=== PATIENT | male | born 1965 | race Caucasian/White ===

== ENCOUNTER 2018-05-18 11:55 | Inpatient (IN) ==
--- NOTE | 2018-05-18 14:08 | ED ---
HPI General Chief complaint: Chest Pain Stated complaint: Chest Pain Time Seen by Provider: 05/18/18 13:47 History of Present Illness HPI narrative: 53-year-old male with a history of hypertension, hyperlipidemia, CAD with stents x6 presents to the emergency department for evaluation of chest pain and shortness of breath. Patient states that approximately 3 weeks ago he was hospitalized at [facility] in [place] for chest pain and had a stent placed at that time. States that after he had a stent placed he continued to have chest pain so they did a second cath and he was told that he had a blockage of another artery however they did not place a second stent. States that since he was discharged from the hospital he has had chest pain with shortness of breath with minimal exertion every day. States he has followed up with his railroad car cleaner Dr. Baraajs twice since he was discharged and he was instructed that if his pain returns then he should come to the emergency department as he will require intervention. Patient states that this morning he was cutting limbs off his crpe [place] and started having midsternal chest pain and shortness of breath. States that this is lasted for the past hour however has been improving with rest. States that his pain is now only a 2 on a scale of 1-10. He denies any fever, chills, nausea, vomiting, lightheadedness, dizziness, syncope, swelling of the extremities, calf pain. No other complaints. PCP Dr. Sosa. Related Data Home Medications Medication Instructions Recorded Confirmed atorvastatin 80 mg PO QPM 05/18/18 05/18/18 isosorbide mononitrate 120 mg PO QAM 05/18/18 05/18/18 lisinopril 40 mg PO DAILY 05/18/18 05/18/18 metoprolol succinate 50 mg PO DAILY 05/18/18 05/18/18 ranolazine [Ranexa] 1,000 mg PO Q12H 05/18/18 05/18/18 ticagrelor [Brilinta] 90 mg PO BID 05/18/18 05/18/18 Allergies Allergy/AdvReac Type Severity Reaction Status Date / Time Penicillins Allergy Hives Verified 05/18/18 14:46 Review of Systems ROS: all other systems reviewed are negative [facility] Medical History Medical History Hernia (Acute) High cholesterol (Acute) Hypertension (Acute) Surgical History Surgical History H/O: vasectomy (Acute) Stented coronary artery (Acute) Social History Social History Substance History: No History of Abuse Second Hand Smoke Exposure: No Smoking Status: Never smoker How Often Do You Have a Drink Containing Alcohol: Never Recent Travel in [facility] within the Last 8 Weeks: No Recent Out of Country Travel within the Last 8 Weeks: No Exam Narrative Exam Narrative: GENERAL: Well-nourished and well-developed pleasant patient in no acute distress who is nontoxic appearing. SKIN: Warm and dry. HEAD: Normocephalic and atraumatic. EYES: No injection, drainage, or hyphema noted. PERRLA. EOMI. ENT: No nasal drainage noted. Oropharynx is clear. NECK: Supple and the trachea is midline. CARDIOVASCULAR: Regular rate and rhythm. RESPIRATORY: Breath sounds are equal bilaterally with no accessory muscle use, wheezing, rhonchi, or crackles. GASTROINTESTINAL: Abdomen is soft, non-tender, and nondistended. MUSCULOSKELETAL: No obvious deformities, swelling, cyanosis, or ecchymosis is present throughout the upper and lower extremities. Patient has full range of motion without any signs of neurovascular compromise. Distal pulses are 2+ throughout. NEUROLOGICAL: Awake, alert, and oriented. Normal speech and gait. Cranial nerves are grossly intact. Course Initial Documented Vital Signs Temperature 98.1 F 05/18/18 11:59 Pulse Rate 71 05/18/18 11:59 Respiratory Rate 18 05/18/18 11:59 Blood Pressure 156/87 H 05/18/18 11:59 Pulse Oximetry 97 05/18/18 11:59 Last Documented Vital Signs Temperature 98.1 F 05/18/18 11:59 Pulse Rate 61 05/18/18 14:43 Respiratory Rate 18 05/18/18 14:43 Blood Pressure 120/59 L 05/18/18 14:43 Pulse Oximetry 95 05/18/18 14:43 Medical Decision Making MDM Narrative Medical decision making narrative: 53-year-old male presents to the emergency department for evaluation of chest pain and shortness of breath with exertion 3 weeks after receiving PCI. Patient is afebrile, vital signs are stable. Physical examination is unremarkable. IV access is obtained, labs of been drawn and sent. Patient is placed on cardiac telemetry and pulse oximetry monitoring. Patient is administered aspirin 324 mg orally. I did review the patient's records from his recent hospitalization at [facility] which shows 04/19/18 his troponin was 0.83. He had 2 cardiac catheterizations done during this hospitalization. During his first cardiac catheterization he had a PCI of mid circumflex. The second cardiac catheterization showed that the PCI was successful however he does have a chronic total occlusion of the RCA, medical management was recommended. He also had an echocardiogram showing EF 55-60%. He had a CTA showing incidental finding of TAA 4 cm with no dissection. EKG shows sinus rhythm with occasional PVCs, no acute ST elevations or depressions. Reviewed by my attending physician Dr. Townsend. CBC is unremarkable. Coags are unremarkable. CMP is unremarkable. Troponin is 0.06. BNP is 166. Patient has remained stable and without complaint while here in the emergency department. Patient is currently chest pain-free. I called and spoke with Dr. Barajas who recommends admission to medicine service and he will consult on the patient. I spoke with Dr. Hernandez [facility] hospitalist who accepts patient to his service. Medical Screen Exam Complete: Yes Emergency Medical Condition: Yes Differential Diagnosis Differential Diagnosis: ACS versus angina versus CHF exacerbation Lab Data Result diagrams: 05/18/18 14:40 05/18/18 14:40 Lab Results 05/18/18 05/18/18 05/18/18 Range/Units 14:40 14:40 14:40 WBC 6.1 (4.0-11.0) th/mm3 RBC 4.81 (4.50-5.90) mil/mm3 Hgb 14.8 (13.0-17.0) gm/dL Hct 43.5 (39.0-51.0) % MCV 90.3 (80.0-100.0) fL MCH 30.8 (27.0-34.0) pg MCHC 34.1 (32.0-36.0) % RDW 14.5 (11.6-17.2) % Plt Count 161 (150-450) th/mm3 MPV 8.2 (7.0-11.0) fL Neut % (Auto) 48.4 (16.0-70.0) % Lymph % (Auto) 37.7 (9.0-44.0) % [place] % (Auto) 10.9 H (0.0-8.0) % Eos % (Auto) 2.7 (0.0-4.0) % Baso % (Auto) 0.3 (0.0-2.0) % Neut # (Auto) 2.9 (1.8-7.7) th/mm3 Lymph # (Auto) 2.3 (1.0-4.8) th/mm3 [place] # (Auto) 0.7 (0.0-0.9) th/mm3 Eos # (Auto) 0.2 (0.0-0.4) th/mm3 Baso # (Auto) 0.0 (0.0-0.2) th/mm3 WBC Differential . Differential Comment Auto diff final PT 10.6 (9.8-11.6) sec INR 1.0 Ratio APTT 28.0 (23.4-31.7) sec Sodium 143 (136-145) meq/L Potassium 3.8 (3.5-5.1) meq/L Chloride 110 H (98-107) meq/L Carbon Dioxide 24.9 (21.0-32.0) meq/L Anion Gap 8 (5-15) meq/L BUN 20 H (7-18) mg/dL Creatinine 0.88 (0.60-1.30) mg/dL Estimated GFR Greater than 89 (>89) mL/min Random Glucose 85 (74-106) mg/dL Calcium 7.9 L (8.5-10.1) mg/dL Magnesium 2.0 (1.5-2.5) mg/dL Total Bilirubin 0.7 (0.2-1.0) mg/dL AST 17 (15-37) U/L ALT 29 (12-78) U/L Alkaline Phosphatase 62 (45-117) U/L Troponin I 0.06 H (0.02-0.05) ng/mL B-Natriuretic Peptide (0-100) pg/mL Total Protein 6.7 (6.4-8.2) g/dL Albumin 3.6 (3.4-5.0) g/dL 05/18/18 05/18/18 Range/Units 14:40 14:40 WBC (4.0-11.0) th/mm3 RBC (4.50-5.90) mil/mm3 Hgb (13.0-17.0) gm/dL Hct (39.0-51.0) % MCV (80.0-100.0) fL MCH (27.0-34.0) pg MCHC (32.0-36.0) % RDW (11.6-17.2) % Plt Count (150-450) th/mm3 MPV (7.0-11.0) fL Neut % (Auto) (16.0-70.0) % Lymph % (Auto) (9.0-44.0) % [place] % (Auto) (0.0-8.0) % Eos % (Auto) (0.0-4.0) % Baso % (Auto) (0.0-2.0) % Neut # (Auto) (1.8-7.7) th/mm3 Lymph # (Auto) (1.0-4.8) th/mm3 [place] # (Auto) (0.0-0.9) th/mm3 Eos # (Auto) (0.0-0.4) th/mm3 Baso # (Auto) (0.0-0.2) th/mm3 WBC Differential Differential Comment PT (9.8-11.6) sec INR Ratio APTT (23.4-31.7) sec Sodium (136-145) meq/L Potassium (3.5-5.1) meq/L Chloride (98-107) meq/L Carbon Dioxide (21.0-32.0) meq/L Anion Gap (5-15) meq/L BUN (7-18) mg/dL Creatinine (0.60-1.30) mg/dL Estimated GFR (>89) mL/min Random Glucose (74-106) mg/dL Calcium (8.5-10.1) mg/dL Magnesium Cancelled (1.5-2.5) mg/dL Total Bilirubin (0.2-1.0) mg/dL AST (15-37) U/L ALT (12-78) U/L Alkaline Phosphatase (45-117) U/L Troponin I (0.02-0.05) ng/mL B-Natriuretic Peptide 166 H (0-100) pg/mL Total Protein (6.4-8.2) g/dL Albumin (3.4-5.0) g/dL Imaging Data Radiologist's impression: Chest X-Ray 05/18/18 14:04 CONCLUSION: Moderate elevation of the left hemidiaphragm otherwise negative Discharge Plan Discharge Disposition Patient Disposition: ED Admit(ED Internal Use Only) Discharge Condition Condition: Stable Discharge Order Discharge Orders: ED Use Only Admit Order (Routine); Ordered 05/18/18 Ordered By: Radha Colon Discharge Details Diagnosis: Exertional chest pain Physicians Team ED Provider: Ariella Townsend ED Midlevel Provider: Radha Colon Primary Care Provider: UNKNOWN, Rxs /Orders / Referrals /Forms Prescriptions: No Action atorvastatin 80 mg Tablet 80 mg PO QPM RF: 0 metoprolol succinate 50 mg Tablet Extended Release 24 Hr 50 mg PO DAILY RF: 0 isosorbide mononitrate 120 mg Tablet Extended Release 24 Hr 120 mg PO QAM RF: 0 lisinopril 40 mg Tablet 40 mg PO DAILY RF: 0 ranolazine [Ranexa] 1,000 mg Tablet Extended Release 12 Hr 1,000 mg PO Q12H RF: 0 ticagrelor [Brilinta] 90 mg Tablet 90 mg PO BID RF: 0 Discharge Instructions Patient Printed Instructions: Chest Pain (ED) Status ED Status: With Doctor
[2018-05-18 15:10] LABS: Baso % (Auto) 0.3 % (0.0-2.0); Eos # (Auto) 0.2 th/mm3 (0.0-0.4); Eos % (Auto) 2.7 % (0.0-4.0); Hematocrit 43.5 % (39.0-51.0); Hemoglobin 14.8 gm/dL (13.0-17.0); Lymph # (Auto) 2.3 th/mm3 (1.0-4.8); Lymph % (Auto) 37.7 % (9.0-44.0); Mean Corpuscular HGB Conc 34.1 % (32.0-36.0); Mean Corpuscular Hemoglobin 30.8 pg (27.0-34.0); Mean Corpuscular Volume 90.3 fL (80.0-100.0); Mean Platelet Volume 8.2 fL (7.0-11.0); Mono # (Auto) 0.7 th/mm3 (0.0-0.9); Mono % (Auto) 10.9 % (0.0-8.0); Neut # (Auto) 2.9 th/mm3 (1.8-7.7); Neut % (Auto) 48.4 % (16.0-70.0); Platelet Count 161 th/mm3 (150-450); Prothrombin Time 10.6 sec (9.8-11.6); Red Blood Count 4.81 mil/mm3 (4.50-5.90); Red Cell Distribution Width 14.5 % (11.6-17.2); White Blood Count 6.1 th/mm3 (4.0-11.0)
[2018-05-18 15:26] LABS: Alanine Aminotransferase 29 U/L (12-78); Albumin 3.6 g/dL (3.4-5.0); Anion Gap 8 meq/L (5-15); Aspartate Aminotransferase 17 U/L (15-37); Blood Urea Nitrogen 20 mg/dL (7-18); Calcium 7.9 mg/dL (8.5-10.1); Carbon Dioxide 24.9 meq/L (21.0-32.0); Chloride 110 meq/L (98-107); Glomerular Filtration Rate Greater Than 89 mL/min (>89); Glucose,Random 85 mg/dL (74-106); Potassium 3.8 meq/L (3.5-5.1); Sodium 143 meq/L (136-145)
[2018-05-18 15:31] LABS: Alkaline Phosphatase 62 U/L (45-117); Total Protein 6.7 g/dL (6.4-8.2); Troponin I 0.06 ng/mL (0.02-0.05)
--- NOTE | 2018-05-18 15:31 | XR ---
EXAM DATE: 05/18/2018 3:24 PM EST AGE/SEX: 53 years / Male INDICATIONS: Chest pain. CLINICAL DATA: This is the patient's initial encounter. Patient reports that signs and symptoms have been present for 1 day and indicates a pain score of 10/10. MEDICAL/SURGICAL HISTORY: None. None. COMPARISON: No prior exams available for comparison. FINDINGS: Moderate elevation of the left hemidiaphragm. Right lung is clear The heart is minimally enlarged. Poor vascularity is normal. There is no pneumothorax. CONCLUSION: Moderate elevation of the left hemidiaphragm otherwise negative Electronically signed by: Edenilson Mccall MD Board Certified Radiologist 05/18/2018 3:30 PM EST
[2018-05-18] MEDS ORDERED: Bisacodyl 10 MG Supp RECTAL PRN (17:29)
[2018-05-18] MEDS ORDERED: Acetaminophen 325 MG Tablet PO PRN (17:29)
--- NOTE | 2018-05-18 17:35 | P.HPIM ---
History of Present Illness Primary Care Physician: UNKNOWN History of Present Illness: Pt is 53 yo with hx cad and repordedly 6 stents. Pt moved from [facility] to [place] and established cardiac care in [facility] with Dr Barajas. Pt was in [place] and developed chest pain and admitted to [facility]. He underwent LHC and pt says had stent placed mid cx. He continued to have chest pain and taken for a second LHC with no interventions. After dc pt has continued to have his "typical angina sx's more with exertion including today while trimming a tree in his yard. Pt says his vending machine host/hostess reviewed the cath films and might be able to proceed with PCI. At moment pt is chest pain free. ED notified his vending machine host/hostess who will see him here. PMH cad. 6 stents hyperlipidemia htn hernia repair vasectomy FH mother had cad in her 50s SH tob 1ppd x 30 yrs quit 3m ago Diagnosis (1) CAD (coronary artery disease): (2) Chest pain: Inpatient Certification Inpatient Certification: I certify that the inpatient services were ordered in accordance with Medicare regulations governing the order. This includes certification that hospital inpatient services are reasonable and necessary and in the case of services not specified as inpatient-only under 42 CFR 419.22(n), that they are appropriately provided as inpatient services in accordance to with the 2-midnight benchmark under 43 CFR 412.3(e) Estimated Total Length of Stay (Days): 3 Plans for Post Hospital Care: Home Medications and Allergies Allergies Allergy/AdvReac Type Severity Reaction Status Date / Time Penicillins Allergy Hives Verified 05/18/18 14:46 Home Medications Medication Instructions Recorded Confirmed Type atorvastatin 80 mg PO QPM 05/18/18 05/18/18 History isosorbide mononitrate 120 mg PO QAM 05/18/18 05/18/18 History lisinopril 40 mg PO DAILY 05/18/18 05/18/18 History metoprolol succinate 50 mg PO DAILY 05/18/18 05/18/18 History ranolazine [Ranexa] 1,000 mg PO Q12H 05/18/18 05/18/18 History ticagrelor [Brilinta] 90 mg PO BID 05/18/18 05/18/18 History Active Medications: Active Medications Acetaminophen (Tylenol) 650 mg PO Q4H PRN PRN Reason: Temp > 100.4 Al Hydroxide/Mg Hydroxide (Milk Of Magnesia Liq) 30 ml PO Q12H PRN PRN Reason: Mild Constipation Aspirin (Aspirin Chew) 81 mg PO DAILY [facility] Atorvastatin Calcium (Lipitor) 80 mg PO QPM [facility] Bisacodyl (Dulcolax Supp) 10 mg RECTAL DAILY PRN PRN Reason: SEVERE CONSITIPATION Lactulose (Lactulose Liq) 30 ml PO DAILY PRN PRN Reason: SEVERE CONSITIPATION Metoprolol Succinate (Toprol Xl) 50 mg PO DAILY [facility] Non-Formulary Medication (Isosorbide Mononitrate [Isosorbide Mononitrate]) 120 mg PO QAM [facility] Non-Formulary Medication (Lisinopril [Lisinopril]) 40 mg PO DAILY [facility] Non-Formulary Medication (Ranolazine [Ranexa]) 1,000 mg PO Q12H [facility] Ondansetron HCl (Zofran Inj) 4 mg IV.PUSH Q6H PRN PRN Reason: NAUSEA OR VOMITING Sennosides (Senokot) 17.2 mg PO Q12H PRN PRN Reason: Moderate Constipation Sodium Chloride (Ns Flush) 2 ml IV.FLUSH UNSCH PRN PRN Reason: FLUSH AFTER USING IV ACCESS Sodium Chloride (Ns Flush) 2 ml IV.FLUSH BID LAUREN Sodium Chloride (Ns Flush) 2 ml IV.FLUSH PRN PRN PRN Reason: FLUSH AFTER USING IV ACCESS Ticagrelor (Brilinta) 90 mg PO BID [facility] Physical Exam Vital signs: Last Vital Signs Temp 98.1 F 05/18/18 11:59 Pulse 62 05/18/18 17:26 Resp 20 05/18/18 17:26 BP 118/71 05/18/18 17:26 Pulse Ox 95 05/18/18 17:26 Narrative: heart reg lung cta abd s/nt ext no edema Results Labs CBC & Chem 7: 05/18/18 14:40 05/19/18 03:33 Caprini VTE Risk Assessment Caprini VTE Risk Assessment: Moderate/High Risk (score >= 2) Caprini Risk Assessment Model: Point Value = 1 Point Value = 2 Point Value = 3 Point Value = 5 Age 41-60 Minor surgery BMI > 25 kg/m2 Swollen legs Varicose veins or History of unexplained or recurrent spontaneous Oral contraceptives or hormone replacement Sepsis (< 1 month) Serious lung disease, including pneumonia (< 1 month) Abnormal pulmonary function Acute myocardial infarction Congestive heart failure (< 1 month) History of inflammatory bowel disease Medical patient at bed rest Age 61-74 Arthroscopic surgery Major open surgery (> 45 min) Laparoscopic surgery (> 45 min) Malignancy Confined to bed (> 72 hours) Immobilizing plaster cast Central venous access Age >= 75 History of VTE Family history of VTE Factor V Leiden Prothrombin [id number] Lupus anticoagulant Anticardiolipin antibodies Elevated serum homocysteine Heparin-induced thrombocytopenia Other congenital or acquired thrombophilia Stroke (< 1 month) Elective arthroplasty Hip, pelvis, or leg fracture Acute spinal cord injury (< 1 month) Prophylaxis Regimen: Total Risk Factor Score Risk Level Prophylaxis Regimen 0-1 Low Early ambulation 2 Moderate Order ONE of the following: *Sequential Compression Device (SCD) *Heparin 5000 units SQ BID 3-4 Higher Order ONE of the following medications: *Heparin 5000 units SQ TID *Enoxaparin/Lovenox 40 mg SQ daily (WT < 150 kg, CrCl > 30 mL/min) *Enoxaparin/Lovenox 30 mg SQ daily (WT < 150 kg, CrCl > 10-29 mL/min) *Enoxaparin/Lovenox 30 mg SQ BID (WT < 150 kg, CrCl > 30 mL/min) AND/OR *Sequential Compression Device (SCD) 5 or more Highest Order ONE of the following medications: *Heparin 5000 units SQ TID (Preferred with Epidurals) *Enoxaparin/Lovenox 40 mg SQ daily (WT < 150 kg, CrCl > 30 mL/min) *Enoxaparin/Lovenox 30 mg SQ daily (WT < 150 kg, CrCl > 10-29 mL/min) *Enoxaparin/Lovenox 30 mg SQ BID (WT < 150 kg, CrCl > 30 mL/min) AND *Sequential Compression Device (SCD) Assessment and Plan Assessment (1) CAD (coronary artery disease): Code(s): I25.10 - Atherosclerotic heart disease of [place] coronary artery without angina pectoris Status: Acute (2) Chest pain: Code(s): R07.9 - Chest pain, unspecified Status: Acute Plan 1. 53 yo with long hx cad and recently admitted to [facility] requiring 2 LHC and 1 stent. Presents with persistent chest pain primarily with exertion. ED notified his vending machine host/hostess who will consult. cont his bb/juanpabol/asa/plavix/nitro/ranexa/statin prn ntg...ntg gtt if needed. monitor tele and ce's..pt noted to have pvc's add ppi as pt also has gerd problems await plan per cardiology..keep npo and add ivf while npo.
[2018-05-18 21:16] LABS: Troponin I 0.05 ng/mL (0.02-0.05)
[2018-05-18] MEDS: Ranolazine 500 MG 12HR ER Tablet PO SCH (21:33)
[2018-05-19 04:17] LABS: Calcium 7.7 mg/dL (8.5-10.1); Potassium 3.8 meq/L (3.5-5.1)
[2018-05-19 04:22] LABS: Troponin I 0.07 ng/mL (0.02-0.05)
[2018-05-19] MEDS ORDERED: Isosorbide Mononitrate 60 MG ER 24HR Tablet (Imdur) PO SCH (07:00)
[2018-05-19] MEDS: Ranolazine 500 MG 12HR ER Tablet PO SCH (08:31)
[2018-05-19] MEDS ORDERED: Sod Chloride 0.9% Inj 1,000 ML IV.CONT SCH (08:57)
[2018-05-19] MEDS ORDERED: Lisinopril 20 MG Tablet PO SCH (09:00)
--- NOTE | 2018-05-19 09:06 | P.PNIM ---
Subjective Interval history: mild pain overnight when ambulating to bathroom. resolved Physical Exam Vital signs: Last Vital Signs Temp 98.5 F 05/19/18 08:35 Pulse 73 05/19/18 08:35 Resp 17 05/19/18 08:35 BP 138/80 05/19/18 08:35 Pulse Ox 93 L 05/19/18 08:35 Narrative: heart reg lung cta abd s/nt ext no edema Results Labs CBC & Chem 7: 05/18/18 14:40 05/19/18 03:33 Assessment and Plan Assessment (1) CAD (coronary artery disease): Code(s): I25.10 - Atherosclerotic heart disease of [place] coronary artery without angina pectoris Status: Acute (2) Chest pain: Code(s): R07.9 - Chest pain, unspecified Status: Acute Plan 1. 53 yo with long hx cad and recently admitted to [facility] requiring 2 LHC and 1 stent. Presents with persistent chest pain primarily with exertion. ED notified his printing film stripper who will consult. cont his bb/juanpablo/asa/plavix/nitro/ranexa/statin prn ntg...ntg gtt if needed. monitor tele and ce's..pt noted to have pvc's add ppi as pt also has gerd problems await plan per cardiology..keep npo and add ivf while npo. addendum: spoke with Dr Barajas. He is at bedside to see pt. he wants pt discharged and f/u next week for outpt PCI. pt agreed with him. Progress Note: Quality VTE Deep Vein Thrombosis/Pulmonary Embolism Present on Admission: No
[2018-05-19 12:57] VITALS: PULSE 59; RESP 18; TEMP 98.2; O2SAT 98
[2018-05-19 12:58] VITALS: BP 124/75
--- NOTE | 2018-05-19 16:34 | P.CONCA ---
History of Present Illness Service: Cardiology Consult date: 05/19/18 Reason for Consult: Chest pain Primary Care Provider: UNKNOWN History of Present Illness: 53-year-old gentleman with a history of coronary disease status post multiple stent placements in 2013 in [place] presented to [facility] in [place] on with chest pain. Patient underwent cardiac catheterization found to have an occluded obtuse marginal under went complex intervention with stenting. Patient also found to have occluded right coronary stents with collaterals which was not intervened upon. Patient had recurrent chest pain was brought back to the catheterization lab and found to have a patent stent in the circumflex looks artery and occluded right coronary stents which was not intervened upon. Patient presented to my office last week with exertional chest pain and was placed on Ranexa. Patient returns with exertional chest pain with nonspecific troponin levels 0.06, 0.05, 0.07 and sinus rhythm with nonspecific inferior ST abnormalities. Review of Systems All other systems reviewed negative except as stated in HPI [facility] - History History Provided By: Patient - Medical History Medical History: Medical History (Last Updated 05/18/18 @ 14:50 by Rach Gomes) Hernia High cholesterol Hypertension - Surgical History Surgical History: Surgical History (Last Updated 05/18/18 @ 14:45 by Rach Gomes) H/O: vasectomy Stented coronary artery - Tobacco History Second Hand Smoke Exposure: No Smoking Status: Never smoker - Alcohol History How Often Do You Have a Drink Containing Alcohol: Never - Substance Use History Substance History: No History of Abuse - Travel History Recent Travel in the [place] Within the Last 8 Weeks: No Recent Travel Out of the Country Within the Last 8 Weeks: No - Immunization History Tetanus Immunization: >5 Years Hx Influenza Vaccine This Season: Yes Medications and Allergies Active Medications: Active Medications Acetaminophen (Tylenol) 650 mg PO Q4H PRN PRN Reason: Temp > 100.4 Al Hydroxide/Mg Hydroxide (Milk Of Magnesia Liq) 30 ml PO Q12H PRN PRN Reason: Mild Constipation Aspirin (Aspirin Chew) 81 mg PO DAILY [facility] Last Admin: 05/19/18 08:32 Dose: 81 mg Atorvastatin Calcium (Lipitor) 80 mg PO QPM [facility] Last Admin: 05/18/18 18:11 Dose: 80 mg Bisacodyl (Dulcolax Supp) 10 mg RECTAL DAILY PRN PRN Reason: SEVERE CONSITIPATION Sodium Chloride (Ns Inj) 1,000 mls @ 84 mls/hr IV.CONT .[id number] [facility] Last Admin: 05/19/18 09:39 Dose: 84 mls/hr Isosorbide Mononitrate (Imdur) 120 mg PO DAILY@0700 [facility] Last Admin: 05/19/18 06:39 Dose: 120 mg Lactulose (Lactulose Liq) 30 ml PO DAILY PRN PRN Reason: SEVERE CONSITIPATION Lisinopril (Prinivil) 40 mg PO DAILY [facility] Last Admin: 05/19/18 08:33 Dose: 40 mg Metoprolol Succinate (Toprol Xl) 50 mg PO DAILY [facility] Last Admin: 05/19/18 08:32 Dose: 50 mg Nitroglycerin (Nitrostat Sl) 0.4 mg SL Q5M PRN PRN Reason: CHEST PAIN Ondansetron HCl (Zofran Inj) 4 mg IV.PUSH Q6H PRN PRN Reason: NAUSEA OR VOMITING Pantoprazole Sodium (Protonix) 40 mg PO BID [facility] Last Admin: 05/19/18 08:31 Dose: 40 mg Ranolazine (Ranexa) 1,000 mg PO Q12HR [facility] Last Admin: 05/19/18 08:31 Dose: 1,000 mg Sennosides (Senokot) 17.2 mg PO Q12H PRN PRN Reason: Moderate Constipation Sodium Chloride (Ns Flush) 2 ml IV.FLUSH UNSCH PRN PRN Reason: FLUSH AFTER USING IV ACCESS Sodium Chloride (Ns Flush) 2 ml IV.FLUSH BID [facility] Last Admin: 05/19/18 08:33 Dose: 2 ml Sodium Chloride (Ns Flush) 2 ml IV.FLUSH PRN PRN PRN Reason: FLUSH AFTER USING IV ACCESS Ticagrelor (Brilinta) 90 mg PO BID [facility] Last Admin: 05/19/18 08:33 Dose: 90 mg Allergies Allergy/AdvReac Type Severity Reaction Status Date / Time Penicillins Allergy Hives Verified 05/18/18 14:46 Home Medications Medication Instructions Recorded Confirmed Type atorvastatin 80 mg PO QPM 05/18/18 05/18/18 History isosorbide mononitrate 120 mg PO QAM 05/18/18 05/18/18 History lisinopril 40 mg PO DAILY 05/18/18 05/18/18 History metoprolol succinate 50 mg PO DAILY 05/18/18 05/18/18 History ranolazine [Ranexa] 1,000 mg PO Q12H 05/18/18 05/18/18 History ticagrelor [Brilinta] 90 mg PO BID 05/18/18 05/18/18 History Exam Vital signs: Vital Signs 05/18/18 17:26 05/18/18 18:06 05/18/18 20:00 Temperature 97.3 F L 97.7 F Pulse Rate 62 51 L 65 Respiratory Rate 20 13 16 Blood Pressure 118/71 129/90 124/85 Pulse Oximetry 95 97 96 05/18/18 23:50 05/19/18 00:00 05/19/18 04:00 Temperature 97.9 F 97.9 F Pulse Rate 62 59 L 65 Respiratory Rate 16 20 Blood Pressure 118/72 153/72 H Pulse Oximetry 94 L 05/19/18 04:37 05/19/18 08:00 05/19/18 08:35 Temperature 98.5 F Pulse Rate 60 76 73 Respiratory Rate 17 Blood Pressure 138/80 Pulse Oximetry 93 L 05/19/18 12:08 05/19/18 12:56 05/19/18 12:57 Temperature 98.2 F 98.2 F Pulse Rate 55 L 59 L 59 L Respiratory Rate 18 18 Blood Pressure 124/76 124/75 Pulse Oximetry 98 98 Intake & Output 05/18/18 05/19/18 05/19/18 18:59 06:59 18:59 Intake Total 220 / 220 Balance 220 / 220 Weight 86.183 kg 86.183 kg Intake: Oral 220 / 220 Other: # Voids 2 Date of Last Bowel Movement 05/17/18 Weight On Admission 85.8 kg - Constitutional no acute distress - Routine Respiratory Exam Present: CTA bilaterally - Routine Cardiovascular Exam Present: RRR - Routine Abdominal Exam Present: soft - Routine Extremities Exam Absent: edema Results 05/18/18 14:40 05/19/18 03:33 Cardiac Enzymes 05/18/18 05/18/18 05/18/18 Range/Units 14:40 14:40 20:08 AST 17 (15-37) U/L Troponin I 0.06 H 0.05 (0.02-0.05) ng/mL B-Natriuretic Peptide 166 H (0-100) pg/mL 05/19/18 Range/Units 03:33 AST (15-37) U/L Troponin I 0.07 H (0.02-0.05) ng/mL B-Natriuretic Peptide (0-100) pg/mL Coagulation 05/18/18 05/18/18 Range/Units 14:40 14:40 PT 10.6 (9.8-11.6) sec APTT 28.0 (23.4-31.7) sec B-Natriuretic Peptide 166 H (0-100) pg/mL CBC 05/18/18 Range/Units 14:40 WBC 6.1 (4.0-11.0) th/mm3 RBC 4.81 (4.50-5.90) mil/mm3 Hgb 14.8 (13.0-17.0) gm/dL Hct 43.5 (39.0-51.0) % Plt Count 161 (150-450) th/mm3 Neut # (Auto) 2.9 (1.8-7.7) th/mm3 Lymph # (Auto) 2.3 (1.0-4.8) th/mm3 [place] # (Auto) 0.7 (0.0-0.9) th/mm3 Eos # (Auto) 0.2 (0.0-0.4) th/mm3 Baso # (Auto) 0.0 (0.0-0.2) th/mm3 Comprehensive Metabolic Panel 05/18/18 05/19/18 Range/Units 14:40 03:33 Sodium 143 144 (136-145) meq/L Potassium 3.8 3.8 (3.5-5.1) meq/L Chloride 110 H 111 H (98-107) meq/L Carbon Dioxide 24.9 25.0 (21.0-32.0) meq/L BUN 20 H 17 (7-18) mg/dL Creatinine 0.88 0.89 (0.60-1.30) mg/dL Calcium 7.9 L 7.7 L (8.5-10.1) mg/dL AST 17 (15-37) U/L ALT 29 (12-78) U/L Alkaline Phosphatase 62 (45-117) U/L Total Protein 6.7 (6.4-8.2) g/dL Albumin 3.6 (3.4-5.0) g/dL Intake and Output 05/19/18 05/19/18 05/19/18 06:59 14:59 22:59 Intake Total 220 / 220 Balance 220 / 220 Intake: Oral 220 / 220 Other: # Voids 2 Weight 86.183 kg - Imaging and Cardiology Imaging: Impressions Chest X-Ray 05/18/18 14:04 CONCLUSION: Moderate elevation of the left hemidiaphragm otherwise negative Assessment and Plan - Assessment (1) Chest pain Code(s): R07.9 - Chest pain, unspecified Status: Acute Plan: Patient will require complex intervention of chronically occluded right coronary stents however procedure cannot be scheduled over the weekend. Patient notes no change in frequency or severity of exertional chest pain and wishes to be scheduled as an outpatient. Patient understands the risks of waiting but feels that he has waited since March and wishes to be discharged. Continue aspirin, Brilinta, and Ranexa (2) CAD (coronary artery disease) Code(s): I25.10 - Atherosclerotic heart disease of [place] coronary artery without angina pectoris Status: Acute Plan: As above (3) Hypertension Code(s): I10 - Essential (primary) hypertension Status: Acute Plan: Continue lisinopril and metoprolol (4) Hyperlipidemia Code(s): E78.5 - Hyperlipidemia, unspecified Status: Acute Plan: Continue high-dose Lipitor
--- NOTE | 2018-05-19 21:28 | ECG ---
Date Performed: 05/18/2018 Time Performed: 12:08:14 PTAGE: 53 years EKG: Sinus rhythm WITH OCCASIONAL VENTRICULAR PREMATURE COMPLEXES MARKED LEFT AXIS DEVIATION MODERATE INTRAVENTRICULAR CONDUCTION DELAY ABNORMAL ECG NO PREVIOUS TRACING DOCTOR: Rene Sanchez Interpretating Date/Time 05/19/2018 21:26:45
== END 2018-05-19 17:15 | disposition home or self-care (01) | DRG 316 ==
LOC: NEPD 11:55 → NEDA 16:25 → N04 17:32
PROVIDERS: ADMIT Hospitalist; ATTEND Hospitalist
CPT/HCPCS: J7030